=== PATIENT | female | born 1975 | race Caucasian/White ===

== ENCOUNTER 2017-07-18 23:46 | Emergency (ER) | payer OTHER ==
[~2017-07-18] VITALS: Ht 160 cm; Wt 82.0 kg
[~2017-07-18 23:46] MED LIST: LIDO2GEL11 TOPICAL; MAXA5TAB2 PO; MOTI25CH CHEW; PROM25SU8 PO
[2017-07-18 23:53] VITALS: BP 100/50; PULSE 72; RESP 18; TEMP 98; O2SAT 99
--- NOTE | 2017-07-19 00:36 | PD ---
HPI Chief Complaint: Injury Time Seen by Provider: 00:28 Travel History International Travel<30 days: No Contact w/Intl Traveler<30days: No Traveled to known affect area: No History of Present Illness HPI 41-year-old female presents to the emergency department for complaint of injury to the left wrist at 7:30 PM while at work. Patient states she was collapsing a ladder at her place of work and the hinge portion pinched her skin of her left wrist and pinched her wrist. Patient states that she had to push the lateral part to release her wrist from the hinged area of the ladder. Patient states since then she's noted some tingling in her hands but no loss of function. Patient has noted some swelling and redness at the site where her skin was pinched. Patient is right-handed. Patient denies any ascending upper extremity symptoms. No previous injury. PFSH Past Medical History Narrative Medical Hypothyroidism Hirschsprung's disease interstitial cystitis tubal ligation tobacco use; nursing notes reviewed Medical History: Denies Significant Hx Cancer: No Cerebrovascular Accident: Yes Diabetes: No Diminished Hearing: No Gastrointestinal Disorders: Yes (HIRSCHSPRUNG DISEASE) Glaucoma: No Genitourinary: Yes (INTERSTITIAL CYSTITIS) Hepatitis: No Hiatal Hernia: No Hypertension: No Immunizations Current: Yes Thyroid Disease: Yes Tetanus Vaccination: > 5 Years Influenza Vaccination: No ?: Not LMP: 07/18/17 : 7 Para: 4 : 3 Tubal Ligation: Yes Past Surgical History Surgical History: No Previous Surgery Gynecologic Surgery: Yes ("TUBAL CLAMPING" FOR CONTROL) Pacemaker: No Other Surgery: Yes Social History Alcohol Use: No Tobacco Use: Yes (1/2ppd) Substance Use: No Allergies-Medications (Allergen,Severity, Reaction): Coded Allergies: latex (Verified Allergy, Mild, RASH, 07/19/17) Reported Meds & Prescriptions Reported Meds & Active Scripts Active Ibuprofen 800 Mg Tab 800 Mg PO Q8H PRN Review of Systems Except as stated in HPI: all other systems reviewed are Neg Musculoskeletal: Positive: Pain Neurologic: Positive: Paresthesia (left wrist and left fingers) Physical Exam Narrative Gen.: Well-developed well-nourished female in no acute distress no respiratory distress Extremity: Attention left upper extremity ulnar volar aspect of left wrist small area of erythema no ecchymosis no abrasion no laceration associated with focal area of soft tissue swelling patient has intact wrist flexion extension and ulnar and radial deviation with intact thumb apposition intact flexion extension and abduction and abduction of each digit. Capillary refill is brisk and less than 2 seconds. Light touch sensation is intact. Proximally there is no ascending erythema or ecchymosis or abrasion. Data Data Last Documented VS Vital Signs Date Time Temp Pulse Resp B/P (MAP) Pulse Ox O2 Delivery O2 Flow Rate FiO2 07/19/17 00:03 Room Air 07/18/17 23:53 98.0 72 18 100/50 (67) 99 Orders Orders Splint Or Brace Apply/Monitor (07/19/17 00:36) Wrist, Complete ([id number]) (07/19/17 ) Ice/Cold Pack (07/19/17 00:38) MDM Medical Decision Making Medical Screen Exam Complete: Yes Emergency Medical Condition: Yes Medical Record Reviewed: Yes Interpretation(s) left wrist xr: No acute bony injury or fracture is identified Differential Diagnosis Contusion, crush injury, compartment syndrome, neurovascular tendon injury, fracture Narrative Course Patient removed from her left hand; imaging studies ordered Patient informed of imaging results and splint applied; paperwork completed Diagnosis Primary Impression: Crushing injury of wrist, left Qualified Codes: S67.32XA - Crushing injury of left wrist, initial encounter Additional Impression: Contusion Qualified Codes: S60.212A - Contusion of left wrist, initial encounter Referrals: Primary Care Physician 1 day Patient Instructions: General Instructions Additional Instructions: Wear splint for support Use ice intermittently for first 12-24 hours May take ibuprofen/Advil/Motrin every 6-8 hours as needed for pain associated with inflammation Follow-up with your managing provider/Worker's Comp. provider times one day Return to the emergency department for a concerns or change Med/Other Pt SpecificInfo: Prescription(s) given Scripts Ibuprofen (Ibuprofen) 800 Mg Tab 800 MG PO Q8H Y for PAIN GREATER THAN 5, #10 TAB 0 Refills Prov: Camila Seay MD 07/19/17 Disposition: 01 DISCHARGE HOME Condition: Stable Camila Seay MD Jul 19, 2017 00:36
[2017-07-19] MEDS ORDERED: IBUP1TAB7 PO (00:40)
--- NOTE | 2017-07-19 01:05 | RADRPT ---
EXAM DATE/TIME: 07/19/2017 00:38 [facility] COMPARISON: No previous studies available for comparison. INDICATIONS : Patient states left wrist pain after being pinched by a ladder. MEDICAL HISTORY : None. SURGICAL HISTORY : Tubal ligation. ENCOUNTER: Initial ACUITY: 1 day PAIN SCORE: 4/10 LOCATION: Left medial wrist. FINDINGS: Three view examination of the left wrist demonstrates no soft tissue swelling, dislocation, or fractu re. The carpal bones are in normal alignment. The joint spaces are maintained. Bony mineralization is normal. CONCLUSION: No acute disease. Yared Hoffman MD on July 19, 2017 at 1:03 Board Certified Radiologist. This report was verified electronically.
[2017-07-19 01:06] VITALS: BP 123/75; PULSE 85; RESP 16; TEMP 98.4; O2SAT 98
== END 2017-07-19 01:03 | disposition home or self-care (01) ==
LOC: PHED 23:46
DX: S67.32XA Crushing injury of left wrist, initial encounter (principal); S60.212A Contusion of left wrist, initial encounter; W23.0XXA Caught, crushed, jammed, or pinched between moving objects, initial encounter
CPT/HCPCS: 73110; 99283; L3908